=== PATIENT | female | born 1930 | race Caucasian/White ===

== ENCOUNTER 2018-12-15 07:02 | Emergency (ER) | payer MEDICARE, OTHER ==
[2018-12-15 07:54] VITALS: BP 150/82; PULSE 68
[2018-12-15] MEDS ORDERED: Ondansetron 4 MG Tab.DIS PO ONE (08:11)
[2018-12-15] MEDS ORDERED: Acetaminophen 325 MG Tab PO ONE (08:11)
--- NOTE | 2018-12-15 08:17 | EDM.PDOC ---
ED HPI GENERAL MEDICAL PROBLEM - General Chief Complaint: Lower Extremity Injury/Pain Stated Complaint: INFLAMED VARICOSE VEIN Time Seen by Provider: 12/15/18 07:58 Source of Information: Reports: Patient, RN Notes Reviewed - History of Present Illness INITIAL COMMENTS - FREE TEXT/NARRATIVE: 88 year old female with R lower leg pain, swelling, that first started about a week ago. That was getting a little better with warm compresses than now getting worse over the past 2 to 3 days. No chest pain or difficulty breathing. The pain is worse with walking, mild discomfort only at rest. No fever or chills. No L leg sx. she does not recall any specific injury. Right Lower Leg Pain Score (Numeric/FACES): 8 - Related Data Allergies Allergy/AdvReac Type Severity Reaction Status Date / Time No Known Allergies Allergy Verified 12/15/18 07:54 Home Meds: Home Meds Aspirin [Adult Low Dose Aspirin EC] 81 mg PO DAILY 12/04/15 [History] Cholecalciferol (Vitamin D3) [Vitamin D3] 2,000 units PO DAILY 12/04/15 [History ] Levothyroxine Sodium [Synthroid] 25 mcg PO DAILY 12/04/15 [History] MV,Ca,Iron,Mn/FA/Chol/Ariel/PABA [Body, Hair, Skin & Nails] 1 tab PO DAILY [History] [place]-3/DHA/Epa/Fish Oil [Fish Oil 1,000 mg Softgel] 1,000 mg PO DAILY 12/04/15 [History] Apixaban [Eliquis] 5 mg PO Q12HR #14 tablet 12/15/18 [Rx] Mirabegron [Myrbetriq] 25 mg PO DAILY 12/15/18 [History] Past Medical History HEENT History: Reports: Allergic Rhinitis, Impaired Vision, Sinusitis, Other ( See Below) Other HEENT History: wears glasses Cardiovascular History: Reports: High Cholesterol, SOB on Exertion Respiratory History: Reports: Other (See Below) Other Respiratory History: cough Gastrointestinal History: Reports: GERD, Hemorrhoids, Hiatal Hernia Genitourinary History: Reports: Other (See Below) Other Genitourinary History: overactive bladder Musculoskeletal History: Reports: Back Pain, Chronic, Other (See Below) Other Musculoskeletal History: osteopenia Neurological History: Reports: None Psychiatric History: Reports: None Endocrine/Metabolic History: Reports: Hypothyroidism, Other (See Below) Other Endocrine/Metabolic History: thyroid nodule - Past Surgical History HEENT Surgical History: Reports: Cataract Surgery Musculoskeletal Surgical History: Reports: Other (See Below) Social & Family History - Tobacco Use Smoking Status *Q: Never Smoker - Caffeine Use Caffeine Use: Reports: Coffee, Soda - Recreational Drug Use Recreational Drug Use: No Review of Systems - Review of Systems Review Of Systems: See Below Constitutional: Denies: Chills Mouth/Throat: Reports: No Symptoms Respiratory: Denies: Shortness of Breath, Cough Cardiovascular: Denies: Chest Pain GI/Abdominal: Denies: Abdominal Pain, Nausea, Vomiting Musculoskeletal: Reports: Leg Pain (R lower leg) Skin: Reports: Erythema (R lower leg) Neurological: Reports: No Symptoms ED EXAM, GENERAL - Physical Exam Exam: See Below General Appearance: Alert, No Apparent Distress Nose: Normal Inspection Throat/Mouth: Normal Inspection Head: Atraumatic. No: Facial Swelling Neck: Supple, Full Range of Motion Respiratory/Chest: No Respiratory Distress, Lungs Clear, Normal Breath Sounds Cardiovascular: Regular Rate, Rhythm GI/Abdominal: Non-Tender Extremities: Leg Pain (there is mild tenderness, swelling of R lower anteromedial leg with very mild localized erythema), Redness (small area of slight erythema L lower leg), Other (calf, knee, thigh nontender) Neurological: Alert, Oriented, No Motor/Sensory Deficits Skin Exam: Warm, Dry, Normal Color Course - Vital Signs Last Recorded V/S: Last Vital Signs Temp 97 F 12/15/18 07:49 Pulse 68 12/15/18 07:49 Resp 16 12/15/18 07:49 BP 150/82 H 12/15/18 07:49 Pulse Ox 97 12/15/18 07:49 - Orders/Labs/Meds Labs: Laboratory Tests 12/15/18 12/15/18 Range/Units 08:31 08:31 WBC 10.08 H (3.98-10.04) K/mm3 RBC 5.52 H (3.98-5.22) M/mm3 Hgb 15.4 (11.2-15.7) gm/dl Hct 48.5 H (34.1-44.9) % MCV 87.9 (79.4-94.8) fl MCH 27.9 (25.6-32.2) pg MCHC 31.8 L (32.2-35.5) g/dl RDW Std Deviation 52.4 H (36.4-46.3) fL Plt Count 381 H (182-369) K/mm3 MPV 10.6 (9.4-12.3) fl Neut % (Auto) 83.3 H (34.0-71.1) % Lymph % (Auto) 8.0 L (19.3-51.7) % [place] % (Auto) 4.4 L (4.7-12.5) % Eos % (Auto) 2.1 (0.7-5.8) Baso % (Auto) 1.7 H (0.1-1.2) % Neut # (Auto) 8.40 H (1.56-6.13) K/mm3 Lymph # (Auto) 0.81 L (1.18-3.74) K/mm3 [place] # (Auto) 0.44 H (0.24-0.36) K/mm3 Eos # (Auto) 0.21 (0.04-0.36) K/mm3 Baso # (Auto) 0.17 H (0.01-0.08) K/mm3 Sodium 141 (136-145) mEq/L Potassium 4.3 (3.5-5.1) mEq/L Chloride 109 H (98-107) mEq/L Carbon Dioxide 28 (21-32) mEq/L Anion Gap 8.3 (5-15) BUN 17 (7-18) mg/dL Creatinine 0.9 (0.55-1.02) mg/dL Est Cr Clr Drug Dosing 33.86 mL/min Estimated GFR (MDRD) 59 (>60) mL/min BUN/Creatinine Ratio 18.9 H (14-18) Glucose 86 (83-115) mg/dL Calcium 8.4 L (8.5-10.1) mg/dL Total Bilirubin 0.5 (0.2-1.0) mg/dL AST 16 (15-37) U/L ALT 18 (14-59) U/L Alkaline Phosphatase 73 (46-116) U/L Total Protein 6.0 L (6.4-8.2) g/dl Albumin 3.2 L (3.4-5.0) g/dl Globulin 2.8 gm/dL Albumin/Globulin Ratio 1.1 (1-2) Meds: Medications Discontinued Medications Generic Name Dose Route Start Last Admin Trade Name Gama PRN Reason Stop Dose Admin Acetaminophen 975 mg 12/15/18 08:11 12/15/18 08:33 Tylenol PO 12/15/18 08:12 975 mg NOW ONE Administration Influenza Virus Vaccine 1 each 12/15/18 07:59 Pharmacy To Dose - Influenza Vaccine IM 12/15/18 08:00 ONETIME ONE Influenza Virus Vaccine 180 mcg 12/15/18 08:45 12/15/18 09:06 Fluzone High-Dose 2019-20 Syringe IM 12/15/18 08:46 180 mcg .ONCE ONE Administration Ondansetron HCl 4 mg 12/15/18 08:11 12/15/18 08:34 Zofran Odt PO 12/15/18 08:12 4 mg ONETIME ONE Administration Departure - Departure Time of Disposition: 11:08 Disposition: Home, Self-Care 01 Condition: Fair Clinical Impression: Thrombophlebitis DVT (deep venous thrombosis) Qualifiers: DVT location: lower extremity Affected thrombotic vein of extremity: unspecified vein of extremity Chronicity: acute Laterality: right Qualified Code (s): I82.401 - Acute embolism and thrombosis of unspecified deep veins of right lower extremity - Discharge Information Prescriptions: Apixaban [Eliquis] 5 mg PO Q12HR #14 tablet Instructions: Deep Vein Thrombosis Referrals: Audra Hull NP [Primary Care Provider] - Forms: ED Department Discharge Additional Instructions: Continue with warm compresses to right lower leg 3-4 times daily,eliquis 5 mg twice daily for 1 week, than 2.5 mg twice daily. Continue to elevate legs when resting. Follow up with your regular medical provider in about 7 to 10 days. Return to ED as needed if symptoms worsening in any way. the 5 mg prescription has been seen to [facility] electronically.
--- NOTE | 2018-12-15 10:37 | US ---
Right lower extremity deep venous ultrasound: Duplex and color Doppler imaging was obtained of the right common femoral, proximal greater saphenous, superficial femoral, popliteal, posterior tibial and peroneal veins. Left common femoral vein was also evaluated. Findings: Duplicated posterior tibial veins are noted. One branch shows evidence of thrombus. Additional thrombus is seen within duplicated peroneal veins. There is also a superficial varicosity showing evidence of clot compatible with thrombophlebitis. Other veins show no evidence of additional thrombus. Impression: 1. Venous thrombosis within one branch of the posterior tibial vein and both branches of the peroneal vein. 2. Superficial thrombophlebitis within a varicosity within the calf. Diagnostic code #5
== END 2018-12-15 11:49 | disposition home or self-care (01) ==
LOC: JD.ED 07:02
DX: I82.441 Acute embolism and thrombosis of right tibial vein (principal); I82.451 Acute embolism and thrombosis of right peroneal vein; I82.811 Embolism and thrombosis of superficial veins of right lower extremity; E78.00 Pure hypercholesterolemia, unspecified; K21.9 Gastro-esophageal reflux disease without esophagitis; E03.9 Hypothyroidism, unspecified; Z79.82 Long term (current) use of aspirin; Z79.899 Other long term (current) drug therapy; Z79.01 Long term (current) use of anticoagulants
CPT/HCPCS: 36415; 80053; 85025; 90662; 93971; 99284; A9270; G0008; 99283

== ENCOUNTER 2020-01-30 15:15 | Emergency (ER) | payer MEDICARE, OTHER ==
[2020-01-30] MEDS ORDERED: Alum Hydrox/Mag Hydrox/Simeth 30 ML, Lidocaine 2% 15 ML PO ONE ×2 (16:26)
[2020-01-30] MEDS ORDERED: Sodium Chloride 0.9% 10 ML Syringe FLUSH PRN (16:27)
--- NOTE | 2020-01-30 16:56 | EDM.PDOC ---
ED HPI GENERAL MEDICAL PROBLEM - General Chief Complaint: Chest Pain Stated Complaint: SOB AND LOW O2 SENT BY CLINIC Time Seen by Provider: 01/30/20 16:21 Source of Information: Reports: Patient, RN Notes Reviewed History Limitations: Reports: No Limitations - History of Present Illness INITIAL COMMENTS - FREE TEXT/NARRATIVE: Patient is an 89-year-old female who presents to the ED for the evaluation of her shortness of breath and low oxygen sats. She states she was seen in the [facility] today by Meeta Cummings she was found to have an elevated ferritin, elevated LDH, a positive strep a screen, and multiple other abnormalities on her labs along with a low oxygen level of in the 80s on room air. Patient presents to the ER and her O2 sats are 93% on room air. She is in no visible respiratory distress. Patient states that on Thursday she began to feel just generally not well. She feels like she had a lot of fatigue and was just not able to do much of her regular activities. She noted a headache at that time as well. She denies any fever, but did have a cough present. She is also complaining some mild chest discomfort and GERD-like symptoms for the past 4 days along with everything. The patient had a chest x-ray done in the clinic as well and it showed some patchy infiltrates suggestive of a viral pneumonia. Patient's primary care provider is Dr. Wells. Treatments TABLE INSPECTOR: Reports: Other (see below) Other Treatments TABLE INSPECTOR: prilosec Middle Chest Pain Score (Numeric/FACES): 8 - Related Data Allergies Allergy/AdvReac Type Severity Reaction Status Date / Time No Known Allergies Allergy Verified 12/15/18 07:54 Home Meds: Home Meds Aspirin [Adult Low Dose Aspirin EC] 81 mg PO DAILY 12/04/15 [History] Cholecalciferol (Vitamin D3) [Vitamin D3] 2,000 units PO DAILY 12/04/15 [History] Levothyroxine Sodium [Synthroid] 25 mcg PO DAILY 12/04/15 [History] Mv,Ashish,Iron,Mn/Folic Acid/Chol [Body, Hair, Skin & Nails] 1 tab PO DAILY 12/04/15 [History] [place]-3/DHA/Epa/Fish Oil [Fish Oil 1,000 mg Softgel] 1,000 mg PO DAILY 10/04/16 [History] Apixaban [Eliquis] 5 mg PO Q12HR #14 tablet 12/15/18 [Rx] Mirabegron [Myrbetriq] 25 mg PO DAILY 12/15/18 [History] Past Medical History HEENT History: Reports: Allergic Rhinitis, Impaired Vision, Sinusitis, Other (See Below) Other HEENT History: wears glasses Cardiovascular History: Reports: High Cholesterol, SOB on Exertion Respiratory History: Reports: Other (See Below) Other Respiratory History: cough Gastrointestinal History: Reports: GERD, Hemorrhoids, Hiatal Hernia Genitourinary History: Reports: Other (See Below) Other Genitourinary History: overactive bladder Musculoskeletal History: Reports: Back Pain, Chronic, Other (See Below) Other Musculoskeletal History: osteopenia Neurological History: Reports: None Psychiatric History: Reports: None Endocrine/Metabolic History: Reports: Hypothyroidism, Other (See Below) Other Endocrine/Metabolic History: thyroid nodule - Past Surgical History HEENT Surgical History: Reports: Cataract Surgery GI Surgical History: Reports: Colonoscopy Female Surgical History: Reports: Hysterectomy Musculoskeletal Surgical History: Reports: Other (See Below) Other Musculoskeletal Surgeries/Procedures:: R knee injury/effusion Social & Family History - Tobacco Use Tobacco Use Status *Q: Never Tobacco User - Caffeine Use Caffeine Use: Reports: Coffee, Soda - Recreational Drug Use Recreational Drug Use: No ED ROS GENERAL - Review of Systems Review Of Systems: Comprehensive ROS is negative, except as noted in HPI. ED EXAM, GENERAL - Physical Exam Exam: See Below Exam Limited By: No Limitations General Appearance: Alert, WD/WN, No Apparent Distress Respiratory/Chest: No Respiratory Distress, Lungs Clear, Normal Breath Sounds, No Accessory Muscle Use, Chest Non-Tender Cardiovascular: Normal Peripheral Pulses, Regular Rate, Rhythm, No Murmur Peripheral Pulses: 2+: Radial (L), Radial (R) Extremities: Normal Inspection, Normal Capillary Refill Neurological: Alert, Oriented, Normal Cognition, No Motor/Sensory Deficits Psychiatric: Normal Affect, Normal Mood Skin Exam: Warm, Dry, Intact, Normal Color, No Rash #1 Interpretation EKG Date: 01/30/20 Time: 17:11 Rhythm: NSR Rate (Beats/Min): 82 [place]: LAD-Left [place] Deviation (-41 ) P-Wave: Present QRS: Normal ST-T: Normal QT: Normal EKG Interpretation Comments: No obvious ischemia or acute ST changes noted, reviewed by myself and Dr. Finch. He does appreciate an old anteroseptal VT, and Q waves in leads II, III and aVF as well. 1 AV block was appreciated. Course - Vital Signs Last Recorded V/S: Last Vital Signs Temp 100.1 F 01/30/20 15:44 Pulse 86 01/30/20 15:44 Resp 16 01/30/20 15:44 BP 129/71 01/30/20 15:44 Pulse Ox 93 L 01/30/20 18:16 - Orders/Labs/Meds Orders: Active Orders 24 hr Category Date Time Status EKG Documentation Completion [RC] STAT Care 01/30/20 16:27 Active Peripheral IV Care [RC] . DIRECTED Care 01/30/20 16:27 Active Vital Signs [RC] .prn Care 01/30/20 18:01 Active Sodium Chloride 0.9% [Saline Flush] Med 01/30/20 16:27 Active 10 ml FLUSH ASDIRECTED PRN Peripheral IV Insertion Adult [OM.PC] Routine Oth 01/30/20 16:26 Ordered Medication Orders Sodium Chloride (Saline Flush) 10 ml FLUSH ASDIRECTED PRN PRN Reason: Keep Vein Open Last Admin: 01/30/20 16:45 Dose: 10 ml Documented by: MOISES Labs: Laboratory Tests 01/30/20 01/30/20 01/30/20 Range/Units 16:45 16:48 16:48 Puncture Site ABG pH (7.35-7.45) ABG pCO2 (35.0-45.0) mmHg ABG pO2 (80.0-100.0) mmHg ABG HCO3 (22.0-26.0) meq/L ABG O2 Saturation (96.0-97.0) % ABG Base Excess (-2-2.0) Gaurav Test A-a Gradient mmHg O2 Delivery Device Oxygen Flow Rate FiO2 (21.00-100.00) % Troponin I < 0.017 (0.00-0.056) ng/mL NT-Pro-B Natriuret Pep 676 H (0-450) pg/mL SARS-CoV-2 RNA (LISA) Positive H (NEGATIVE) 01/30/20 Range/Units 16:55 Puncture Site Lt radial ABG pH 7.47 H (7.35-7.45) ABG pCO2 31.2 L (35.0-45.0) mmHg ABG pO2 59.0 L (80.0-100.0) mmHg ABG HCO3 22.2 (22.0-26.0) meq/L ABG O2 Saturation 88.3 L (96.0-97.0) % ABG Base Excess -0.3 (-2-2.0) Gaurav Test Positive A-a Gradient 52 mmHg O2 Delivery Device Room air Oxygen Flow Rate 0.0 FiO2 21.00 (21.00-100.00) % Troponin I (0.00-0.056) ng/mL NT-Pro-B Natriuret Pep (0-450) pg/mL SARS-CoV-2 RNA (LISA) (NEGATIVE) Meds: Medications Generic Name Dose Route Start Last Admin Trade Name Júniorq PRN Reason Stop Dose Admin Sodium Chloride 10 ml 01/30/20 16:27 01/30/20 16:45 Saline Flush FLUSH 10 ml ASDIRECTED PRN Administration Keep Vein Open Discontinued Medications Generic Name Dose Route Start Last Admin Trade Name Freq PRN Reason Stop Dose Admin Al Hydroxide/Mg Hydroxide 30 0 ml 01/30/20 16:26 01/30/20 16:45 ml/ Lidocaine HCl 15 ml PO 01/30/20 16:27 45 ml ONETIME ONE Administration Dexamethasone 6 mg 01/30/20 18:01 01/30/20 19:03 Decadron IVPUSH 01/30/20 18:02 6 mg ONETIME ONE Administration Diphenhydramine HCl 50 mg 01/30/20 18:00 Benadryl IVPUSH ONETIME PRN hypersensitivity reaction Epinephrine HCl 0.3 mg 01/30/20 18:00 Epinephrine 1:10,000 IM ONETIME PRN hypersensitivity reaction Famotidine 20 mg 01/30/20 18:00 Pepcid IVPUSH ONETIME PRN hypersensitivity reaction Bamlanivimab 700 mg/ Sodium 200 mls @ 200 mls/hr 01/30/20 18:00 01/30/20 19:08 Chloride IV 01/30/20 18:01 Not Given ONETIME ONE Protocol Remdesivir 200 mg/ Sodium 250 mls @ 250 mls/hr 01/30/20 18:37 01/30/20 19:04 Chloride IV 01/30/20 18:38 250 mls/hr ONETIME ONE Administration Methylprednisolone Sodium Succinate 125 mg 01/30/20 18:00 Solu-Medrol IVPUSH ONETIME PRN hypersensitivity reaction Sodium Chloride 30 ml 01/30/20 18:00 Saline Flush FLUSH ASDIRECTED NAILA - Re-Assessments/Exams Free Text/Narrative Re-Assessment/Exam: 01/30/20 17:07 Patient presents to the ED for the evaluation of her shortness of breath and reported low oxygen level at the clinic. Patient's PO2 is mildly low at 59 mmHg. O2 sats however have been 92 to 93% on room air while being in the ER. We will get a EKG, troponin, BNP, obtain a 1 hour Covid swab, and figure out a plan after the Covid swab has been resulted. I do highly suspect that she may have it due to lab findings from the clinic and the patient's x-ray showed some patchy infiltrates on the right side. She would likely benefit from bamlanivimab treatment. 01/30/20 18:41 Patient's EKG was negative, troponin was undetectably low. Covid swab was positive at today's visit. Upon recheck of the patient O2 sats are 85-86% on room air pretty steadily. This would require her to have hospitalization. O2 has been placed at 2 L and her resultant O2 sats are 93 to 94%. I am on the phone with [facility] in [place], and they do have a bed at this time, Dr. Schroeder is the hospitalist. I have started her on remdesivir and dexamethasone for Covid treatment. I will question him on if he wants her to be started on antibiotics for for the positive strep today. 01/30/20 18:50 Dr. Schroeder does accept the patient for transfer at this time. 01/30/20 19:15 I was able to talk with the patient's son, Macario, and he did verbalize understanding of the mother's transfer to [place] at this time. He states he will update his father regarding her status. Departure - Departure Time of Disposition: 18:50 Disposition: DC/Tfer to Acute Hospital 02 Condition: Fair Clinical Impression: COVID-19, Hypoxia - Discharge Information *PRESCRIPTION DRUG MONITORING PROGRAM REVIEWED*: No *COPY OF PRESCRIPTION DRUG MONITORING REPORT IN PATIENT GINNY: No Referrals: Sam Davila MD [Primary Care Provider] - Forms: ED Department Discharge Sepsis Event Note (ED) - Evaluation Sepsis Screening Result: No Definite Risk - Focused Exam Vital Signs: Vital Signs Temp Pulse Resp BP Pulse Ox Pulse Ox 01/30/20 18:16 93 L 01/30/20 15:44 100.1 F 86 16 129/71 93 L - My Orders Last 24 Hours: My Active Orders 01/30/20 16:26 Peripheral IV Insertion Adult [OM.PC] Routine 01/30/20 16:27 EKG Documentation Completion [RC] STAT Peripheral IV Care [RC] . DIRECTED Sodium Chloride 0.9% [Saline Flush] 10 ml FLUSH ASDIRECTED PRN 01/30/20 18:01 Vital Signs [RC] .prn - Assessment/Plan Last 24 Hours: My Active Orders 01/30/20 16:26 Peripheral IV Insertion Adult [OM.PC] Routine 01/30/20 16:27 EKG Documentation Completion [RC] STAT Peripheral IV Care [RC] . DIRECTED Sodium Chloride 0.9% [Saline Flush] 10 ml FLUSH ASDIRECTED PRN 01/30/20 18:01 Vital Signs [RC] .prn
[2020-01-30] MEDS ORDERED: methylPREDNISolone Sodium Succinate 125 MG/2 ML SDV IVPUSH PRN (18:00)
[2020-01-30] MEDS ORDERED: Sodium Chloride 0.9% 10 ML Syringe FLUSH SCH (18:00)
[2020-01-30] MEDS ORDERED: Famotidine 20 MG/2 ML SDV IVPUSH PRN (18:00)
[2020-01-30] MEDS ORDERED: EPINEPHrine 1:10,000 1 MG/10 ML Syringe IM PRN (18:00)
[2020-01-30] MEDS ORDERED: diphenhydrAMINE 50 MG/ML SDV IVPUSH PRN (18:00)
[2020-01-30] MEDS ORDERED: Dexamethasone 10 MG/ML SDV IVPUSH ONE (18:01)
[2020-01-30] MEDS ORDERED: REMDESIVIR 200 MG in Sodium Chloride 0.9% 250 ML IV ONE (18:37)
[2020-01-30 20:25] VITALS: BP 133/72; PULSE 88
== END 2020-01-30 21:00 ==
LOC: JD.ED 15:15
DX: U07.1 COVID-19 (principal); R09.02 Hypoxemia; E03.9 Hypothyroidism, unspecified; Z79.82 Long term (current) use of aspirin; Z79.01 Long term (current) use of anticoagulants; Z79.899 Other long term (current) drug therapy
CPT/HCPCS: 36415; 36600; 82803; 83880; 84484; 93005; 96365; 96375; 99285; A9270; J1100; J7050; U0002; 93010